=== PATIENT | female | born 1980 | race American Indian/Alaskan Native ===

== ENCOUNTER 2020-05-18 02:23 | Emergency (ER) | payer SELFPAY ==
[2020-05-18 11:09] VITALS: BP 148/82
== END 2020-05-19 02:22 ==
LOC: ED 02:23
DX: R44.0 Auditory hallucinations (principal); Z53.21 Procedure and treatment not carried out due to patient leaving prior to being seen by health care provider

== ENCOUNTER 2020-05-31 23:56 | Emergency (ER) | payer SELFPAY ==
--- NOTE | 2020-06-01 03:49 | Emergency Department Report ---
ED General Adult HPI - General Chief complaint: Extremity Injury, Lower Stated complaint: ANXIETY/HEADACHE/MUSCLE SPASM Time Seen by Provider: 06/01/20 03:44 Source: patient Mode of arrival: Ambulatory Limitations: No Limitations - History of Present Illness Initial comments: The patient was evaluated in the emergency department for symptoms described in the history of present illness. He/she was evaluated in the context of the global COVID-19 pandemic, which necessitated consideration that the patient might be at risk for infection with the virus that causes COVID-19. Institutional protocols and algorithms that pertain to the evaluation of edith ents at risk for COVID-19 are in a state of rapid change based on information released by regulatory bodies including the CDC and federal and state organizations. These policies and algorithms were followed during the patient's care in the emergency department. Please note that these policies, procedures and recommendations changed on a rapid basis. 39-year-old -[place] female presents to the emergency room complaining of bilateral leg cramping for the last 24 hours. Patient also complains of urinary frequency for the last 24 hours. She denies any dysuria but admits to nausea but no vomiting. Last menstrual period was 05/30/2020. Patient denies any recent falls. She states that the pain is worse when she sits down on the toilet where she catches a cramp in both inner thighs and lower calf. Patient has a past medical history of migraines and not taking anything for it at this time but was taking amitriptyline. She has a history of seizures and currently taking Dilantin, she has a history of bipolar and anxiety and has been taking hydroxyzine and trazodone. She has had a tubal ligation and cholecystectomy. Onset/Timin -: hour(s) Location: lower extremity Severity scale (0 -10): 10 Quality: other (Cramping) Consistency: constant Improves with: none Worsens with: other (sitting) Associated Symptoms: nausea/vomiting (Nausea no vomiting). denies: chest pain, fever/chills, headaches, loss of appetite, shortness of breath Treatments Prior to Arrival: none - Related Data Previous Rx's Medication Instructions Recorded Last Taken Type Acetaminophen/Codeine [Tylenol 1 tab PO Q6H PRN #12 tab 06/01/20 Unknown Rx /Codeine # 3 tab] Baclofen 5 mg PO TID PRN #15 tablet 06/01/20 Unknown Rx Allergies Allergy/AdvReac Type Severity Reaction Status Date / Time No Known Allergies Allergy Unverified 06/01/20 01:24 ED Review of Systems ROS: Stated complaint: ANXIETY/HEADACHE/MUSCLE SPASM Other details as noted in HPI Comment: All other systems reviewed and negative ED Past Medical Hx - Past Medical History Previous Medical History?: Yes Hx Headaches / Migraines: Yes Hx Seizures: Yes Hx Psychiatric Treatment: Yes (Bipolar, Anxiety,) - Surgical History Past Surgical History?: Yes Hx Cholecystectomy: Yes Additional Surgical History: Hernia. Tubal ligation. - Social History Smoking Status: Current Every Day Smoker Substance Use Type: None - Medications Home Medications: Home Medications Medication Instructions Recorded Confirmed Last Taken Type Acetaminophen/Codeine [Tylenol 1 tab PO Q6H PRN #12 tab 06/01/20 Unknown Rx /Codeine # 3 tab] Baclofen 5 mg PO TID PRN #15 tablet 06/01/20 Unknown Rx ED Physical Exam - General Limitations: No Limitations General appearance: alert, in no apparent distress - Head Head exam: Present: atraumatic, normocephalic - Eye Eye exam: Present: normal appearance - ENT ENT exam: Present: mucous membranes moist - Neck Neck exam: Present: normal inspection, full ROM - Expanded Lower Extremity Exam Left Upper Leg exam: Present: tenderness (Inner thigh). Absent: swelling Knee exam: Present: normal inspection, full ROM Lower Leg exam: Present: full ROM, tenderness Ankle exam: Present: normal inspection, full ROM Foot/Toe exam: Present: normal inspection, full ROM Neuro vascular tendon exam: Present: no vascular compromise Gait: Positive: observed and normal - Neurological Exam Neurological exam: Present: alert, oriented X3, normal gait - Psychiatric Psychiatric exam: Present: normal affect, normal mood - Skin Skin exam: Present: warm, dry, intact, normal color. Absent: rash ED Course Vital Signs 06/01/20 01:11 Temperature 98.4 F Pulse Rate 89 Respiratory 16 Rate Blood Pressure 116/77 O2 Sat by Pulse 99 Oximetry ED Medical Decision Making - Lab Data Result diagrams: 06/01/20 04:07 06/01/20 04:07 - Medical Decision Making 39-year-old -[place] female presents to the emergency room complaining of bilateral leg cramping for the last 24 hours. Patient also complains of urinary frequency for the last 24 hours. She denies any dysuria but admits to nausea but no vomiting. Last menstrual period was 05/30/2020. Patient denies any recent falls. She states that the pain is worse when she sits down on the toilet where she catches a cramp in both inner thighs and lower calf. Patient has a past medical history of migraines and not taking anything for it at this time but was taking amitriptyline. She has a history of seizures and currently taking Dilantin, she has a history of bipolar and anxiety and has been taking hydroxyzine and trazodone. She has had a tubal ligation and cholecystectomy. Urinalysis CBC CMP Critical care attestation.: If time is entered above; I have spent that time in minutes in the direct care of this critically ill patient, excluding procedure time. ED Disposition Clinical Impression: Muscle spasms of both lower extremities Disposition: DC-01 TO HOME OR SELFCARE Is pt being admited?: No Does the pt Need Aspirin: No Condition: Stable Instructions: Muscle Cramps and Spasms, [id number] Additional Instructions: Please increase your water by 3 L daily. Take your medication as prescribed. Follow-up with your primary care provider in the next 3 days.. Your urine was negative for any acute infection. Prescriptions: Baclofen 5 mg PO TID PRN #15 tablet PRN Reason: Muscle Spasm Acetaminophen/Codeine [Tylenol /Codeine # 3 tab] 1 tab PO Q6H PRN #12 tab PRN Reason: Pain , Severe (7-10) Referrals: ALICE WALLS MD [Primary Care Provider] - 3-5 Days Forms: Work/School Release Form(ED)
[2020-06-01 04:46] LABS: Hematocrit 38.2 % (30.3-42.9); Hemoglobin 12.9 gm/dl (10.1-14.3); Mean Corpuscular HGB Conc 34 % (30-34); Mean Corpuscular Volume 89 fl (79-97); Platelet Count 389 K/mm3 (140-440); Red Cell Distribution Width 14.6 % (13.2-15.2)
[2020-06-01 04:48] LABS: Basophils % (Auto) 0.5 % (0.0-1.8); Eosinophils # (Auto) 0.1 K/mm3 (0.0-0.4); Eosinophils % (Auto) 1.3 % (0.0-4.3); Lymphocytes # (Auto) 3.9 K/mm3 (1.2-5.4); Lymphocytes % (Auto) 59.5 % (13.4-35.0); Monocytes # (Auto) 0.5 K/mm3 (0.0-0.8); Monocytes % (Auto) 7.2 % (0.0-7.3)
[2020-06-01 04:57] LABS: Albumin 4.2 g/dL (3.9-5); Calcium 9.9 mg/dL (8.4-10.2)
[2020-06-01 05:56] LABS: Bilirubin,Urine NEG (Negative); Blood,Urine NEG (Negative); Color,Urine Yellow (Yellow); Mucus,Urine FEW /HPF; Protein,Urine <15 mg/dL mg/dL (Negative); Urobilinogen,Urine < 2.0 mg/dL (<2.0)
[2020-06-01 06:26] VITALS: BP 119/80
== END 2020-06-01 06:25 | disposition home or self-care (01) ==
LOC: ED 23:56
DX: M79.604 Pain in right leg (principal); M79.605 Pain in left leg; M62.838 Other muscle spasm; R35.0 Frequency of micturition; G43.909 Migraine, unspecified, not intractable, without status migrainosus; R56.9 Unspecified convulsions; F31.9 Bipolar disorder, unspecified; F41.9 Anxiety disorder, unspecified; F17.200 Nicotine dependence, unspecified, uncomplicated; Z90.49 Acquired absence of other specified parts of digestive tract; Z79.899 Other long term (current) drug therapy
CPT/HCPCS: 36415; 80053; 81001; 85025

== ENCOUNTER 2020-06-06 20:26 | Emergency (ER) | payer SELFPAY ==
[2020-06-06] MEDS ORDERED: SODIUM CHLORIDE 0.9% 1000 ML 1,000 ML IV ONE (22:36)
[2020-06-06] MEDS ORDERED: FAMOTIDINE 20 MG/2 ML INJ IV ONE (22:36)
[2020-06-06] MEDS ORDERED: ONDANSETRON 4 MG/2 ML INJ IV ONE (22:36)
[2020-06-06 23:18] LABS: Basophils % (Auto) 0.4 % (0.0-1.8); Eosinophils % (Auto) 0.7 % (0.0-4.3); Hemoglobin 11.8 gm/dl (10.1-14.3); Lymphocytes # (Auto) 3.2 K/mm3 (1.2-5.4); Lymphocytes % (Auto) 51.4 % (13.4-35.0); Mean Corpuscular HGB Conc 33 % (30-34); Mean Corpuscular Volume 89 fl (79-97); Monocytes # (Auto) 0.5 K/mm3 (0.0-0.8); Monocytes % (Auto) 8.1 % (0.0-7.3); Platelet Count 332 K/mm3 (140-440); Red Blood Count 4.05 M/mm3 (3.65-5.03); Red Cell Distribution Width 14.3 % (13.2-15.2)
[2020-06-06 23:55] LABS: Alanine Aminotransferase 33 units/L (7-56); Albumin 4.3 g/dL (3.9-5); BUN/Creatinine Ratio 13; Blood Urea Nitrogen 16 mg/dL (7-17); Calcium 9.7 mg/dL (8.4-10.2); Hemolysis Index 5
[2020-06-07 00:25] LABS: Bilirubin,Urine NEG (Negative); Blood,Urine NEG (Negative); Color,Urine Yellow (Yellow); Mucus,Urine 1+ /HPF; Protein,Urine <15 mg/dL mg/dL (Negative); Urobilinogen,Urine < 2.0 mg/dL (<2.0)
--- NOTE | 2020-06-07 00:25 | XRay Report ---
CHEST 1 VIEW 0014 INDICATION / CLINICAL INFORMATION: right-chest pain COMPARISON: None available. FINDINGS: SUPPORT DEVICES: None HEART / MEDIASTINUM: No significant abnormality. LUNGS / PLEURA: No significant pulmonary or pleural abnormality. No pneumothorax. ADDITIONAL FINDINGS: No significant additional findings. IMPRESSION: No significant acute abnormality Signer Name: Meng Gonzalez MD Signed: 06/07/2020 12:21 AM Workstation Name: [id number]
--- NOTE | 2020-06-07 04:13 | Emergency Department Report ---
ED General Adult HPI - General Chief complaint: Nausea/Vomiting/Diarrhea Stated complaint: CHEST PAIN PUI?: No Time Seen by Provider: 06/07/20 03:47 Source: patient Mode of arrival: Ambulatory Limitations: No Limitations - History of Present Illness Initial comments: Patient is a 39-year-old female that presents emergency room with complaints of right lower rib pain, nausea, vomiting, chills, fatigue,. Patient states that her rib pain, nausea, vomiting and fatigue and chills started June 05 at 7 AM. Patient states the symptoms are worsening. Patient states the pain is better with rest and worse with taking a deep breath and movement and palpation. Patient denies chest pain or shortness of breath. Patient states that she vomited once. Patient states she has not vomited since her initial vomiting episode. Patient states she still feels nauseated. Patient states she is able to tolerate p.o. intake. Patient states she is tired and fatigued and having chills. Patient also states that she is having hallucinations. Patient states she is hearing voices. Patient also complains of anxiety. Patient states that the voices are telling her to hurt herself. Patient states the voices are also talking about that she should and how they want to kill her. Patient complains of depression. Patient denies homicidal ideations. Patient states the voices are telling her to see her self. Patient states the symptoms are worsening. Patient denies recent travel. Patient denies recent international travel. Patient denies exposure to the novel coronavirus. Patient denies sick contacts. Patient denies fever.. Patient denies cough. Patient denies diarrhea. Patient denies coming in contact with anybody with symptoms of the novel coronavirus. -: Sudden Severity scale (0 -10): 8 Quality: stabbing Consistency: constant Improves with: rest Worsens with: movement, other (Palpation) Associated Symptoms: nausea/vomiting. denies: confusion, chest pain, cough, diaphoresis, headaches, loss of appetite, malaise, rash, seizure, shortness of breath, syncope, weakness - Related Data Previous Rx's Medication Instructions Recorded Last Taken Type Acetaminophen/Codeine [Tylenol 1 tab PO Q6H PRN #12 tab 06/01/20 Unknown Rx /Codeine # 3 tab] Baclofen 5 mg PO TID PRN #15 tablet 06/01/20 Unknown Rx Sulfamethoxazole/Trimethoprim 1 each PO BID 10 Days #20 tablet 06/07/20 Unknown Rx [Bactrim DS TAB] Allergies Allergy/AdvReac Type Severity Reaction Status Date / Time No Known Allergies Allergy Unverified 06/01/20 01:24 ED Review of Systems ROS: Stated complaint: CHEST PAIN Other details as noted in HPI Constitutional: chills, malaise. denies: fever Eyes: denies: eye pain, eye discharge, vision change ENT: denies: ear pain, throat pain Respiratory: denies: cough, shortness of breath, wheezing Cardiovascular: denies: chest pain, palpitations Endocrine: no symptoms reported Gastrointestinal: nausea, vomiting. denies: abdominal pain, diarrhea, constipation, hematemesis, melena, hematochezia Genitourinary: denies: urgency, dysuria, discharge Musculoskeletal: denies: back pain, joint swelling, arthralgia Skin: denies: rash, lesions Neurological: denies: headache, weakness, paresthesias Psychiatric: as per HPI, anxiety, depression, auditory hallucinations Hematological/Lymphatic: denies: easy bleeding, easy bruising ED Past Medical Hx - Past Medical History Previous Medical History?: Yes Hx Headaches / Migraines: Yes Hx Seizures: Yes Hx Psychiatric Treatment: Yes (Bipolar, Anxiety,) - Surgical History Past Surgical History?: Yes Hx Cholecystectomy: Yes Additional Surgical History: Hernia. Tubal ligation. - Family History Family history: no significant - Social History Smoking Status: Former Smoker Substance Use Type: None - Medications Home Medications: Home Medications Medication Instructions Recorded Confirmed Last Taken Type Acetaminophen/Codeine [Tylenol 1 tab PO Q6H PRN #12 tab 06/01/20 Unknown Rx /Codeine # 3 tab] Baclofen 5 mg PO TID PRN #15 tablet 06/01/20 Unknown Rx Sulfamethoxazole/Trimethoprim 1 each PO BID 10 Days #20 tablet 06/07/20 Unknown Rx [Bactrim DS TAB] ED Physical Exam - General Limitations: No Limitations General appearance: alert, in no apparent distress - Head Head exam: Present: atraumatic, normocephalic - Eye Eye exam: Present: normal appearance - ENT ENT exam: Present: mucous membranes moist - Neck Neck exam: Present: normal inspection - Respiratory Respiratory exam: Present: normal lung sounds bilaterally, chest wall tenderness. Absent: respiratory distress, wheezes, rales - Cardiovascular Cardiovascular Exam: Present: regular rate, normal rhythm. Absent: systolic murmur, diastolic murmur, rubs, gallop - GI/Abdominal GI/Abdominal exam: Present: soft, normal bowel sounds. Absent: distended, tenderness, guarding - Extremities Exam Extremities exam: Present: normal inspection - Back Exam Back exam: Present: normal inspection - Neurological Exam Neurological exam: Present: alert, oriented X3 - Psychiatric Psychiatric exam: Present: depressed, anxious, flat affect - Skin Skin exam: Present: warm, dry, intact, normal color. Absent: rash ED Course Vital Signs 06/06/20 20:37 Temperature 98.5 F Pulse Rate 87 Respiratory 18 Rate Blood Pressure 122/83 O2 Sat by Pulse 93 Oximetry - Reevaluation(s) Reevaluation #1: I discussed all results and clinical findings with patient. I discussed plan of care with patient. Patient agrees with plan of care. Patient is medically cleared. Patient will remain in the ER as an ER hold. Patient final disposition will come from our psychiatry and mental health team. 06/07/20 04:16 ED Medical Decision Making - Lab Data Result diagrams: 06/06/20 22:42 06/06/20 22:42 - Radiology Data Radiology results: report reviewed, image reviewed interpreted by me: Chest x-ray: No pneumonia, no pneumothorax, no foreign body, no osseous findings, no acute findings - Medical Decision Making Patient is a 39-year-old female that presents emergency room for multiple complaints. Patient complaints include hallucinations, anxiety, depression, fatigue, nausea, vomiting, rib pain. Patient only vomited one time. Patient has rib tenderness. Patient was complaining hallucinations and psychiatric complaints. Patient is medically cleared and will be taken to our psychiatric area. Patient's final disposition will come from our psychiatry team. Patient had labs done which were essentially unremarkable except for UTI. Patient's chest x-ray is negative. Patient is medically stable. Patient does not require emergency medical services. Patient's will be cleared by our psychiatry team. Patient given oral antibiotics prescription. - Differential Diagnosis Hallucinations, rib pain, strain, sprain, gastroenteritis,N/V, chills, Critical care attestation.: If time is entered above; I have spent that time in minutes in the direct care of this critically ill patient, excluding procedure time. ED Disposition Clinical Impression: Anxiety, Gastroenteritis, Hallucinations, Chest wall pain Nausea & vomiting Qualifiers: Vomiting type: unspecified Vomiting Intractability: non-intractable Qualified Code(s): R11.2 - Nausea with vomiting, unspecified Depression Qualifiers: Depression Type: unspecified Qualified Code(s): F32.9 - Major depressive disorder, single episode, unspecified UTI (urinary tract infection) Qualifiers: Urinary tract infection type: acute cystitis Hematuria presence: with hematuria Qualified Code(s): N30.01 - Acute cystitis with hematuria Disposition: DC/TX-65 PSY HOSP/PSY UNIT Is pt being admited?: No Does the pt Need Aspirin: No Condition: Stable Instructions: Nausea, Adult, Viral Gastroenteritis, Adult, [id number], Major Depressive Disorder, Adult, [id number], Urinary Tract Infection, Adult, [id number], Chest Pain (ED) Additional Instructions: Patient to follow-up with primary care in 2 to 3 days. Patient to rest. Patient to increase water. Patient to take Tylenol or ibuprofen as needed for pain. Patient to take meds as directed. Patient to return to the ER if condition worsens, changes or new symptoms arise. Prescriptions: Sulfamethoxazole/Trimethoprim [Bactrim DS TAB] 1 each PO BID 10 Days #20 tablet Referrals: ALICE WALLS MD [Primary Care Provider] - 2-3 Days Time of Disposition: 04:16
[2020-06-07] MEDS ORDERED: cefTRIAXone/NS 2 GM/100 ML 2 GM/100 ML BAG IV ONE (04:20)
[2020-06-07] MEDS ORDERED: LIDOCAINE-MPF (1%) 10 MG/1 ML VIAL 5 ML INFILTRATI ONE (04:43)
[2020-06-07 07:56] VITALS: BP 114/80
--- NOTE | 2020-06-07 08:49 | Consultation ---
History of Present Illness - Reason for Consult Consult date: 06/07/20 Reason for consult: hallucinations - History of Present Psychiatric Illness Per ED note, "complaints of right lower rib pain, nausea, vomiting, chills, fatigue,. Patient states that her rib pain, nausea, vomiting and fatigue and chills started June 05 at 7 AM. Patient states the symptoms are worsening. Patient states the pain is better with rest and worse with taking a deep breath and movement and palpation. Patient denies chest pain or shortness of breath. Patient states that she vomited once. Patient states she has not vomited since her initial vomiting episode. Patient states she still feels nauseated. Patient states she is able to tolerate p.o. intake. Patient states she is tired and fatigued and having chills. Patient also states that she is having hallucinations. Patient states she is hearing voices. Patient also complains of anxiety. Patient states that the voices are telling her to hurt herself. Patient states the voices are also talking about that she should and how they want to kill her. Patient complains of depression. Patient denies homicidal ideations. Patient states the voices are telling her to see her self. Patient states the symptoms are worsening." During my interview with Ashley Colón, she is lying in bed resting, but awake. She is calm and cooperative. The patient says she came in because she was having "bad anxiety." She says "any my chest was hurting." When asking the patient about the hallucinations, she says "I have them why I'm off my meds." She says she has been of her meds for about "a week and 1/2." But the patient denies having them at present. The patient says she has a history of anxiety, bipolar, PTSD and heroine use. The patient says she's been doing heroine for about "8 years, but had been clean until the end of last year." She says "I have withdrawals symptoms if I'm off and they are really bad." When asked about rehab the patient, She says, "I was just released from [facility] so I don't know why I'm up here." She says she was discharged from [facility] on May 28. The edith ent says she could not afford her medication. The patient denies SI/HI or ever being. She says "I don't feel suicidal at all." PAST PSYCHIATRIC HISTORY Diagnoses: PTSD, Anxiety, bipolar Suicide attempts or Self-harm behavior: yes Prior psychiatric hospitalizations: Yes Substance Abuse history: Heroine Previous psychiatric medications tried: Trazodone, hydroxizine Outpatient treatment: No PAST MEDICAL HISTORY: None reported Family Psychiatric History: None reported or documented SOCIAL HISTORY Marital Status: Single Living Arrangements: with friends Employment Status: unemployed Access to guns/weapons: Denies Education: 11 History of Abuse: Denies Legal History: Denies EVIEW OF SYSTEMS Constitutional: Negative for weight loss ENT: Negative for stridor Respiratory: Negative for cough or hemoptysis All other systems reviewed and are negative MENTAL STATUS EXAMINATION General Appearance and Behavior: Age appropriate, wearing appropriate clothes, calm and cooperative, polite Mood: "better" Affect and affective range: congruent with mood Thought Process: logical Thought Content: none Speech: Normal volume, Regular rate and rhythm Suicidal Ideation: Denies Homicidal Ideation: Denies Hallucinations: Denies at present Delusions: None elicited Impulse Control: Normal Insight and Judgment: Limited Memory/Cognition: Normal Attention: Normal Orientation: Alert, oriented Assessment (1) Opioid Dependence (F11.20) (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 The patient understands that if suicidal thoughts are to arise she is to seek immediate attention including but not limited to 911/ER, or the crisis hotline. The street light servicer helper is to give the patient outpatient resources for med management and assistance, CBT, and drug rehab. The street light servicer helper is to further discuss the safety plan with the patient. The patient is to abstain from all illicit drug use and comply with medical regimen She is to follow up in 7 to 14 days upon discharge Will sign off. Thank you for this consult. Case staffed with Dr. Luz Medications and Allergies Allergies Allergy/AdvReac Type Severity Reaction Status Date / Time No Known Allergies Allergy Unverified 06/01/20 01:24 Home Medications Medication Instructions Recorded Confirmed Last Taken Type Acetaminophen/Codeine [Tylenol 1 tab PO Q6H PRN #12 tab 06/01/20 Unknown Rx /Codeine # 3 tab] Baclofen 5 mg PO TID PRN #15 tablet 06/01/20 Unknown Rx Hydroxyzine HCl [hydrOXYzine] 50 mg PO DAILY PRN #30 tablet 06/07/20 Unknown Rx Sulfamethoxazole/Trimethoprim 1 each PO BID 10 Days #20 tablet 06/07/20 Unknown Rx [Bactrim DS TAB] risperiDONE [RisperDAL] 0.5 mg PO BID #60 tablet 06/07/20 Unknown Rx traZODone [Desyrel] 50 mg PO QHS #30 tab 06/07/20 Unknown Rx Mental Status Exam - Vital signs Last Vital Signs Temp 97.6 F 06/07/20 07:54 Pulse 68 06/07/20 07:54 Resp 20 06/07/20 07:54 BP 114/80 06/07/20 07:54 Pulse Ox 98 06/07/20 07:54 Results Result Diagrams: 06/06/20 22:42 06/06/20 22:42 Abnormal lab results 06/06/20 06/06/20 Range/Units 22:42 Unknown Lymph % (Auto) 51.4 H (13.4-35.0) % [place] % (Auto) 8.1 H (0.0-7.3) % Seg Neutrophils % 39.4 L (40.0-70.0) % Urine WBC (Auto) 36.0 H (0.0-6.0) /HPF All other labs normal.
[2020-06-07] MEDS ORDERED: hydrOXYzine PAMOATE 25 MG CAP PO NR ×2 (09:04→11:00)
[2020-06-07] MEDS ORDERED: risperiDONE 0.25 MG TAB PO NR ×2 (09:05→11:00)
== END 2020-06-07 13:27 ==
LOC: ED 20:26
DX: K52.9 Noninfective gastroenteritis and colitis, unspecified (principal); F41.9 Anxiety disorder, unspecified; R07.89 Other chest pain; F32.9 Major depressive disorder, single episode, unspecified; N39.0 Urinary tract infection, site not specified; G43.909 Migraine, unspecified, not intractable, without status migrainosus; G40.909 Epilepsy, unspecified, not intractable, without status epilepticus; Z90.49 Acquired absence of other specified parts of digestive tract; Z98.51 Tubal ligation status; Z87.891 Personal history of nicotine dependence; Z79.899 Other long term (current) drug therapy
CPT/HCPCS: 36415; 71045; 80053; 81001; 83690; 84484; 84703; 85025; 87086; 96372; 99284; J0696; Q0177

== ENCOUNTER 2020-06-16 01:01 | Emergency (ER) | payer SELFPAY ==
--- NOTE | 2020-06-16 01:19 | Emergency Department Report ---
Blank Doc - Documentation Documentation: 39-year-old -Thai female with a myriad of past medical history she just emerged part complaining of nausea vomiting diarrhea headache anxiety and auditory hallucinations of an unknown etiology also reports having a seizure a few days ago. States she has been unable to keep her UTI medication down and her anxiety medicine down due to the nausea and vomiting as well which is further exacerbating her her current symptoms. This initial assessment/diagnostic orders/clinical plan/treatment(s) is/are subject to change based on patients health status, clinical progression and re- assessment by fellow clinical providers in the ED. Further treatment and workup at subsequent clinical providers discretion. Patient/guardian urged not to elope from the ED as their condition may be serious if not clinically assessed and managed. Initial orders include: Labs, x-ray, urinalysis
[2020-06-16] MEDS ORDERED: ONDANSETRON 4 MG ODT TAB PO ONE (01:40)
[2020-06-16 01:43] LABS: Basophils % (Auto) 0.3 % (0.0-1.8); Eosinophils # (Auto) 0.1 K/mm3 (0.0-0.4); Eosinophils % (Auto) 1.1 % (0.0-4.3); Hemoglobin 12.5 gm/dl (10.1-14.3); Lymphocytes # (Auto) 2.3 K/mm3 (1.2-5.4); Lymphocytes % (Auto) 46.4 % (13.4-35.0); Mean Corpuscular HGB Conc 34 % (30-34); Mean Corpuscular Volume 89 fl (79-97); Monocytes # (Auto) 0.4 K/mm3 (0.0-0.8); Monocytes % (Auto) 7.8 % (0.0-7.3); Platelet Count 319 K/mm3 (140-440); Red Blood Count 4.18 M/mm3 (3.65-5.03); Red Cell Distribution Width 14.5 % (13.2-15.2)
[2020-06-16 02:04] LABS: Alanine Aminotransferase 27 units/L (7-56); Albumin 4.2 g/dL (3.9-5); BUN/Creatinine Ratio 19; Blood Urea Nitrogen 21 mg/dL (7-17); Calcium 9.3 mg/dL (8.4-10.2); Hemolysis Index 4
--- NOTE | 2020-06-16 02:21 | Emergency Department Report ---
ED N/V/D HPI - General Chief complaint: Nausea/Vomiting/Diarrhea Stated complaint: EMESIS/ABD PAIN/SEVERE SWEATING/ANXIETY Time Seen by Provider: 06/16/20 01:19 Source: patient Mode of arrival: Ambulatory Limitations: No Limitations - History of Present Illness Initial comments: 39-year-old female, history of PTSD, anxiety, bipolar disorder, presents to ED with complaint of nausea and vomiting for approximately 4 days. Patient states she has been unable to take her psych meds due to her vomiting. Patient reports some auditory hallucinations in which people sound as if they are talking about her. She denies any command auditory hallucinations. She denies SI, HI. Patient reports she has been feeling anxious. Patient denies any alcohol or drug use. States she smokes cigarettes. MD complaint: nausea, vomiting -: days(s) (4) Description of Vomiting: food contents Associated Abdominal Pain: Yes (Lower abdominal pain) Radiation: other (Back) Severity: mild Quality: cramping Consistency: intermittent Improves with: none Worsens with: eating Associated Symptoms: denies: fever/chills - Related Data Previous Rx's Medication Instructions Recorded Last Taken Type Acetaminophen/Codeine [Tylenol 1 tab PO Q6H PRN #12 tab 06/01/20 Unknown Rx /Codeine # 3 tab] Baclofen 5 mg PO TID PRN #15 tablet 06/01/20 Unknown Rx Hydroxyzine HCl [hydrOXYzine] 50 mg PO DAILY PRN #30 tablet 06/07/20 Unknown Rx Sulfamethoxazole/Trimethoprim 1 each PO BID 10 Days #20 tablet 06/07/20 Unknown Rx [Bactrim DS TAB] risperiDONE [RisperDAL] 0.5 mg PO BID #60 tablet 06/07/20 Unknown Rx traZODone [Desyrel] 50 mg PO QHS #30 tab 06/07/20 Unknown Rx Ondansetron [Zofran Odt] 4 mg PO Q8HR PRN #20 tab.rapdis 06/16/20 Unknown Rx Allergies Allergy/AdvReac Type Severity Reaction Status Date / Time metoclopramide [From Reglan] Allergy Unknown Verified 06/16/20 01:13 ED Review of Systems ROS: Stated complaint: EMESIS/ABD PAIN/SEVERE SWEATING/ANXIETY Other details as noted in HPI Comment: All other systems reviewed and negative Constitutional: denies: fever Gastrointestinal: abdominal pain, nausea, vomiting. denies: diarrhea Genitourinary: frequency Psychiatric: anxiety, auditory hallucinations. denies: visual hallucinations, homicidal thoughts, suicidal thoughts ED Past Medical Hx - Past Medical History Previous Medical History?: Yes Hx Headaches / Migraines: Yes Hx Seizures: Yes Hx Psychiatric Treatment: Yes (Bipolar, Anxiety,) - Surgical History Past Surgical History?: Yes Hx Cholecystectomy: Yes Additional Surgical History: Hernia. Tubal ligation. - Social History Smoking Status: Current Every Day Smoker Substance Use Type: None - Medications Home Medications: Home Medications Medication Instructions Recorded Confirmed Last Taken Type Acetaminophen/Codeine [Tylenol 1 tab PO Q6H PRN #12 tab 06/01/20 Unknown Rx /Codeine # 3 tab] Baclofen 5 mg PO TID PRN #15 tablet 06/01/20 Unknown Rx Hydroxyzine HCl [hydrOXYzine] 50 mg PO DAILY PRN #30 tablet 06/07/20 Unknown Rx Sulfamethoxazole/Trimethoprim 1 each PO BID 10 Days #20 tablet 06/07/20 Unknown Rx [Bactrim DS TAB] risperiDONE [RisperDAL] 0.5 mg PO BID #60 tablet 06/07/20 Unknown Rx traZODone [Desyrel] 50 mg PO QHS #30 tab 06/07/20 Unknown Rx Ondansetron [Zofran Odt] 4 mg PO Q8HR PRN #20 tab.rapdis 06/16/20 Unknown Rx ED Physical Exam - General Limitations: No Limitations General appearance: alert, in no apparent distress - Head Head exam: Present: atraumatic, normocephalic - Eye Eye exam: Present: normal appearance, EOMI - ENT ENT exam: Present: mucous membranes moist - Neck Neck exam: Present: normal inspection - Respiratory Respiratory exam: Present: normal lung sounds bilaterally. Absent: respiratory distress - Cardiovascular Cardiovascular Exam: Present: regular rate, normal rhythm - GI/Abdominal GI/Abdominal exam: Present: soft. Absent: distended, tenderness - Extremities Exam Extremities exam: Present: normal inspection - Neurological Exam Neurological exam: Present: alert, oriented X3 - Psychiatric Psychiatric exam: Present: normal affect, normal mood - Skin Skin exam: Present: warm, dry, intact, normal color ED Course Vital Signs 06/16/20 06/16/20 01:06 03:01 Temperature 97.8 F 97.9 F Pulse Rate 95 H 89 Respiratory 16 18 Rate Blood Pressure 139/88 Blood Pressure 108/62 [Left] O2 Sat by Pulse 96 99 Oximetry ED Medical Decision Making - Lab Data Result diagrams: 06/16/20 01:20 06/16/20 01:20 - Medical Decision Making 39-year-old female presents to the ED with report of abdominal pain, nausea and vomiting. Patient currently eating and drinking here in the ED without difficulty. Labs are unremarkable except for UDS which is positive for cocaine. Patient given Zofran and Ativan here in the ED and states that she is feeling much better at this time. She denies any SI or HI. Patient will be discharged home, outpatient psych follow-up advised. Critical care attestation.: If time is entered above; I have spent that time in minutes in the direct care of this critically ill patient, excluding procedure time. ED Disposition Clinical Impression: Nausea & vomiting, Anxiety, Cocaine abuse Disposition: - TO HOME OR SELFCARE Is pt being admited?: No Condition: Stable Instructions: Nausea and Vomiting, Adult, [id number], Managing Anxiety, Adult Prescriptions: Ondansetron [Zofran Odt] 4 mg PO Q8HR PRN #20 tab.rapdis PRN Reason: Vomiting Referrals: ALICE WALLS MD [Primary Care Provider] - 3-[address] [facility] [Outside] - 3-5 Days Time of Disposition: 02:42
[2020-06-16 02:25] LABS: Amphetamine Screen,Urine Negative; Benzodiazepines Screen,Urine Negative; Cannabinoid Screen,Urine Negative; Methadone Screen,Urine Negative
[2020-06-16 02:27] LABS: Bilirubin,Urine NEG (Negative); Blood,Urine NEG (Negative); Color,Urine Yellow (Yellow); Mucus,Urine FEW /HPF; Protein,Urine <15 mg/dL mg/dL (Negative); Urobilinogen,Urine < 2.0 mg/dL (<2.0)
[2020-06-16 02:38] LABS: Cocaine Screen,Urine Positive; Opiate Screen,Urine Positive
[2020-06-16] MEDS ORDERED: LORazepam 1 MG TAB PO ONE (02:41)
[2020-06-16] MEDS ORDERED: IBUPROFEN 600 MG TAB PO ONE (02:49)
[2020-06-16 03:06] VITALS: BP 108/62
== END 2020-06-16 03:11 | disposition home or self-care (01) ==
LOC: ED 01:01
DX: F41.9 Anxiety disorder, unspecified (principal); R11.2 Nausea with vomiting, unspecified; F14.10 Cocaine abuse, uncomplicated; F31.9 Bipolar disorder, unspecified; F17.200 Nicotine dependence, unspecified, uncomplicated; G43.909 Migraine, unspecified, not intractable, without status migrainosus; Z88.8 Allergy status to other drugs, medicaments and biological substances; Z79.899 Other long term (current) drug therapy; Z86.69 Personal history of other diseases of the nervous system and sense organs; Z98.51 Tubal ligation status
CPT/HCPCS: 36415; 80053; 80307; 80320; 81001; 83690; 84703; 85025; 87086; G0480; Q0162

== ENCOUNTER 2020-06-16 05:49 | Emergency (ER) | payer MEDICAID ==
--- NOTE | 2020-06-16 05:58 | Emergency Department Report ---
Blank Doc - Documentation Documentation: 39-year-old female with seizure history and anxiety returns to the emergency d epartment complaining of worsening anxiety and auditory hallucinations also reports he does not feel safe at home. She reports having had a seizure just prior to coming here via EMS and her previous visit of a couple hours ago she was found to have cocaine/opiates in her system does report taking Dilantin for her seizures. Currently she is anxious and perspiring around the forehead This initial assessment/diagnostic orders/clinical plan/treatment(s) is/are subject to change based on patients health status, clinical progression and re- assessment by fellow clinical providers in the ED. Further treatment and workup at subsequent clinical providers discretion. Patient/guardian urged not to elope from the ED as their condition may be serious if not clinically assessed and managed. Initial orders include: Evaluate Dilantin level and give some Ativan to calm her down
[2020-06-16] MEDS ORDERED: LORazepam 1 MG TAB PO ONE (05:59)
[2020-06-16] MEDS ORDERED: SODIUM CHLORIDE 0.9% 1000 ML 1,000 ML ONE (06:59)
--- NOTE | 2020-06-16 10:59 | Emergency Department Report ---
ED General Adult HPI - General Chief complaint: Seizure Stated complaint: SEIZURE Time Seen by Provider: 06/16/20 09:38 Source: patient, EMS Mode of arrival: Ambulatory Limitations: No Limitations - History of Present Illness Initial comments: The patient presents to the emergency department for seizure-like activity. Patient was seen in the emergency department and discharged earlier this morning and upon leaving the emergency department she had a seizure. Patient states she is supposed to take Dilantin for seizures but does not have the medication. Patient denies any homicidal suicidal ideations. Patient does have auditory loose Nations but she states that is normal. Patient denies chest pain, chest pain, headache -: Sudden Severity scale (0 -10): 0 Consistency: constant Improves with: none Worsens with: none Associated Symptoms: denies other symptoms Treatments Prior to Arrival: none - Related Data Previous Rx's Medication Instructions Recorded Last Taken Type Acetaminophen/Codeine [Tylenol 1 tab PO Q6H PRN #12 tab 06/01/20 Unknown Rx /Codeine # 3 tab] Baclofen 5 mg PO TID PRN #15 tablet 06/01/20 Unknown Rx Hydroxyzine HCl [hydrOXYzine] 50 mg PO DAILY PRN #30 tablet 06/07/20 Unknown Rx Sulfamethoxazole/Trimethoprim 1 each PO BID 10 Days #20 tablet 06/07/20 Unknown Rx [Bactrim DS TAB] risperiDONE [RisperDAL] 0.5 mg PO BID #60 tablet 06/07/20 Unknown Rx traZODone [Desyrel] 50 mg PO QHS #30 tab 06/07/20 Unknown Rx Ondansetron [Zofran Odt] 4 mg PO Q8HR PRN #20 tab.rapdis 06/16/20 Unknown Rx Phenytoin [Dilantin] 100 mg PO BID #30 capsule 06/16/20 Unknown Rx Allergies Allergy/AdvReac Type Severity Reaction Status Date / Time metoclopramide [From Reglan] Allergy Unknown Verified 06/16/20 01:13 ED Review of Systems ROS: Stated complaint: SEIZURE Other details as noted in HPI Constitutional: denies: chills, fever Eyes: denies: eye pain, eye discharge, vision change ENT: denies: ear pain, throat pain Respiratory: denies: cough, shortness of breath, wheezing Cardiovascular: denies: chest pain, palpitations Endocrine: no symptoms reported Gastrointestinal: denies: abdominal pain, nausea, diarrhea Genitourinary: denies: urgency, dysuria, discharge Musculoskeletal: denies: back pain, joint swelling, arthralgia Skin: denies: rash, lesions Neurological: denies: headache, weakness, paresthesias Psychiatric: auditory hallucinations. denies: anxiety, depression, visual hallucinations, homicidal thoughts, suicidal thoughts Hematological/Lymphatic: denies: easy bleeding, easy bruising ED Past Medical Hx - Past Medical History Previous Medical History?: Yes Hx Headaches / Migraines: Yes Hx Seizures: Yes Hx Psychiatric Treatment: Yes (Bipolar, Anxiety,) - Surgical History Past Surgical History?: Yes Hx Cholecystectomy: Yes Additional Surgical History: Hernia. Tubal ligation. - Social History Smoking Status: Current Every Day Smoker Substance Use Type: None - Medications Home Medications: Home Medications Medication Instructions Recorded Confirmed Last Taken Type Acetaminophen/Codeine [Tylenol 1 tab PO Q6H PRN #12 tab 06/01/20 Unknown Rx /Codeine # 3 tab] Baclofen 5 mg PO TID PRN #15 tablet 06/01/20 Unknown Rx Hydroxyzine HCl [hydrOXYzine] 50 mg PO DAILY PRN #30 tablet 06/07/20 Unknown Rx Sulfamethoxazole/Trimethoprim 1 each PO BID 10 Days #20 tablet 06/07/20 Unknown Rx [Bactrim DS TAB] risperiDONE [RisperDAL] 0.5 mg PO BID #60 tablet 06/07/20 Unknown Rx traZODone [Desyrel] 50 mg PO QHS #30 tab 06/07/20 Unknown Rx Ondansetron [Zofran Odt] 4 mg PO Q8HR PRN #20 tab.rapdis 06/16/20 Unknown Rx Phenytoin [Dilantin] 100 mg PO BID #30 capsule 06/16/20 Unknown Rx ED Physical Exam - General Limitations: No Limitations General appearance: alert, in no apparent distress - Head Head exam: Present: atraumatic, normocephalic - Eye Eye exam: Present: normal appearance, PERRL, EOMI - ENT ENT exam: Present: mucous membranes moist - Neck Neck exam: Present: normal inspection - Respiratory Respiratory exam: Present: normal lung sounds bilaterally. Absent: respiratory distress - Cardiovascular Cardiovascular Exam: Present: regular rate, normal rhythm. Absent: systolic murmur, diastolic murmur, rubs, gallop - GI/Abdominal GI/Abdominal exam: Present: soft, normal bowel sounds. Absent: distended, tenderness - Extremities Exam Extremities exam: Present: normal inspection - Back Exam Back exam: Present: normal inspection - Neurological Exam Neurological exam: Present: alert, oriented X3, CN II-XII intact. Absent: motor sensory deficit - Psychiatric Psychiatric exam: Present: normal affect, normal mood - Skin Skin exam: Present: warm, dry, intact, normal color. Absent: rash ED Course Vital Signs 06/16/20 06/16/20 05:52 11:29 Temperature 98.4 F Pulse Rate 93 H 60 Respiratory 17 Rate Blood Pressure 139/84 123/73 O2 Sat by Pulse 98 96 Oximetry ED Medical Decision Making - Lab Data Lab Results 06/16/20 Range/Units 01:20 Phenytoin 0.8 L (10.0-20.0) ug/mL - Medical Decision Making Discussed plan of care with patient Critical care attestation.: If time is entered above; I have spent that time in minutes in the direct care of this critically ill patient, excluding procedure time. ED Disposition Clinical Impression: Seizure Disposition: DC-01 TO HOME OR SELFCARE Is pt being admited?: No Does the pt Need Aspirin: No Condition: Stable Instructions: Seizure, Adult, [id number] Additional Instructions: return if worse Prescriptions: Phenytoin [Dilantin] 100 mg PO BID #30 capsule Referrals: ALICE WALLS MD [Primary Care Provider] - 3-5 Days SOLITARIO ANDERSON MD [Staff Physician] - 3-5 Days Time of Disposition: 12:49
[2020-06-16 11:35] VITALS: BP 123/73
[2020-06-16] MEDS ORDERED: PHENYTOIN 100 MG CAPSULE.ER PO ONE (12:15)
== END 2020-06-16 13:39 | disposition home or self-care (01) ==
LOC: ED 05:49
DX: G40.909 Epilepsy, unspecified, not intractable, without status epilepticus (principal); F17.200 Nicotine dependence, unspecified, uncomplicated; F41.9 Anxiety disorder, unspecified; G43.909 Migraine, unspecified, not intractable, without status migrainosus; Z79.899 Other long term (current) drug therapy; Z88.8 Allergy status to other drugs, medicaments and biological substances; Z98.51 Tubal ligation status; Z98.890 Other specified postprocedural states; Z90.49 Acquired absence of other specified parts of digestive tract
CPT/HCPCS: 36415; 80185; 99284; J7030

== ENCOUNTER 2020-06-16 21:34 | Emergency (ER) | payer SELFPAY ==
[2020-06-17] MEDS ORDERED: ONDANSETRON 4 MG/2 ML INJ IV ONE (07:49)
[2020-06-17] MEDS ORDERED: SODIUM CHLORIDE 0.9% 1000 ML 1,000 ML IV ONE (07:49)
[2020-06-17] MEDS ORDERED: PHENYTOIN 100 MG/2 ML VIAL IV ONE (07:50)
--- NOTE | 2020-06-17 08:00 | Emergency Department Report ---
ED General Adult HPI - General Chief complaint: Seizure Stated complaint: SEIZURE Time Seen by Provider: 06/17/20 07:40 Source: patient, EMS Mode of arrival: Ambulatory Limitations: No Limitations - History of Present Illness Initial comments: Patient is a 39-year-old female with history of seizures noncompliant on Dilantin who presents emergency department for evaluation of suspected seizure at home today. Patient notes she has had nausea, vomiting, and difficulty with bowel movements x3 days. Complains of mild intermittent crampy left lower quad rant pain. Patient denies fever, denies shortness of breath, denies chest pain, denies head injury - Related Data Previous Rx's Medication Instructions Recorded Last Taken Type Acetaminophen/Codeine [Tylenol 1 tab PO Q6H PRN #12 tab 06/01/20 Unknown Rx /Codeine # 3 tab] Baclofen 5 mg PO TID PRN #15 tablet 06/01/20 Unknown Rx Hydroxyzine HCl [hydrOXYzine] 50 mg PO DAILY PRN #30 tablet 06/07/20 Unknown Rx Sulfamethoxazole/Trimethoprim 1 each PO BID 10 Days #20 tablet 06/07/20 Unknown Rx [Bactrim DS TAB] risperiDONE [RisperDAL] 0.5 mg PO BID #60 tablet 06/07/20 Unknown Rx traZODone [Desyrel] 50 mg PO QHS #30 tab 06/07/20 Unknown Rx Ondansetron [Zofran Odt] 4 mg PO Q8HR PRN #20 tab.rapdis 06/16/20 Unknown Rx Phenytoin [Dilantin] 100 mg PO BID #30 capsule 06/16/20 Unknown Rx Allergies Allergy/AdvReac Type Severity Reaction Status Date / Time metoclopramide [From Reglan] Allergy Unknown Verified 06/16/20 01:13 ED Review of Systems ROS: Stated complaint: SEIZURE Other details as noted in HPI Comment: All other systems reviewed and negative ED Past Medical Hx - Past Medical History Previous Medical History?: Yes Hx Headaches / Migraines: Yes Hx Seizures: Yes Hx Psychiatric Treatment: Yes (Bipolar, Anxiety,) - Surgical History Past Surgical History?: Yes Hx Cholecystectomy: Yes Additional Surgical History: Hernia. Tubal ligation. - Social History Smoking Status: Current Every Day Smoker Substance Use Type: None - Medications Home Medications: Home Medications Medication Instructions Recorded Confirmed Last Taken Type Acetaminophen/Codeine [Tylenol 1 tab PO Q6H PRN #12 tab 06/01/20 Unknown Rx /Codeine # 3 tab] Baclofen 5 mg PO TID PRN #15 tablet 06/01/20 Unknown Rx Hydroxyzine HCl [hydrOXYzine] 50 mg PO DAILY PRN #30 tablet 06/07/20 Unknown Rx Sulfamethoxazole/Trimethoprim 1 each PO BID 10 Days #20 tablet 06/07/20 Unknown Rx [Bactrim DS TAB] risperiDONE [RisperDAL] 0.5 mg PO BID #60 tablet 06/07/20 Unknown Rx traZODone [Desyrel] 50 mg PO QHS #30 tab 06/07/20 Unknown Rx Ondansetron [Zofran Odt] 4 mg PO Q8HR PRN #20 tab.rapdis 06/16/20 Unknown Rx Phenytoin [Dilantin] 100 mg PO BID #30 capsule 06/16/20 Unknown Rx ED Physical Exam - General Limitations: No Limitations General appearance: alert, in no apparent distress - Head Head exam: Present: atraumatic, normocephalic - Eye Eye exam: Present: normal appearance - ENT ENT exam: Present: mucous membranes moist - Neck Neck exam: Present: normal inspection - Respiratory Respiratory exam: Present: normal lung sounds bilaterally. Absent: respiratory distress - Cardiovascular Cardiovascular Exam: Present: regular rate, normal rhythm - GI/Abdominal GI/Abdominal exam: Present: tenderness (Mild epigastric tenderness), normal bowel sounds - Extremities Exam Extremities exam: Present: normal inspection - Back Exam Back exam: Present: normal inspection - Neurological Exam Neurological exam: Present: alert, oriented X3 - Psychiatric Psychiatric exam: Present: normal affect, normal mood - Skin Skin exam: Present: warm, dry, intact, normal color. Absent: rash ED Course Vital Signs 06/16/20 23:13 Temperature 98.0 F Pulse Rate 111 H Respiratory 17 Rate Blood Pressure 127/87 O2 Sat by Pulse 96 Oximetry - Reevaluation(s) Reevaluation #1: 06/17/20 08:00 Initially treated with IV Dilantin, IV normal saline, IV Zofran Reevaluation #2: 06/17/20 10:26 Patient reevaluated and in no acute distress, lab work normal, CT normal, patient discharged ED Medical Decision Making - Lab Data Result diagrams: 06/17/20 08:21 06/17/20 08:21 Lab Results 06/17/20 06/17/20 06/17/20 Range/Units 08:21 08:21 08:21 WBC 4.8 (4.5-11.0) K/mm3 RBC 3.99 (3.65-5.03) M/mm3 Hgb 11.6 (10.1-14.3) gm/dl Hct 35.6 (30.3-42.9) % MCV 89 (79-97) fl MCH 29 (28-32) pg MCHC 33 (30-34) % RDW 14.7 (13.2-15.2) % Plt Count 307 (140-440) K/mm3 Lymph % (Auto) 52.1 H (13.4-35.0) % [place] % (Auto) 10.5 H (0.0-7.3) % Eos % (Auto) 1.5 (0.0-4.3) % Baso % (Auto) 0.2 (0.0-1.8) % Lymph # (Auto) 2.5 (1.2-5.4) K/mm3 [place] # (Auto) 0.5 (0.0-0.8) K/mm3 Eos # (Auto) 0.1 (0.0-0.4) K/mm3 Baso # (Auto) 0.0 (0.0-0.1) K/mm3 Seg Neutrophils % 35.7 L (40.0-70.0) % Seg Neutrophils # 1.7 L (1.8-7.7) K/mm3 Sodium 136 L (137-145) mmol/L Potassium 4.1 (3.6-5.0) mmol/L Chloride 102.3 (98-107) mmol/L Carbon Dioxide 28 (22-30) mmol/L Anion Gap 10 mmol/L BUN 16 (7-17) mg/dL Creatinine 1.0 (0.6-1.2) mg/dL Estimated GFR > 60 ml/min BUN/Creatinine Ratio 16 % Glucose 121 H (65-100) mg/dL Calcium 8.9 (8.4-10.2) mg/dL Total Bilirubin < 0.20 (0.1-1.2) mg/dL Direct Bilirubin < 0.2 (0-0.2) mg/dL Indirect Bilirubin 0.0 mg/dL AST 17 (5-40) units/L ALT 21 (7-56) units/L Alkaline Phosphatase 63 (35-129) units/L Total Protein 7.7 (6.3-8.2) g/dL Albumin 3.9 (3.9-5) g/dL Albumin/Globulin Ratio 1.0 % Lipase 19 (13-60) units/L HCG, Quant < 2 (0-4) mIU/mL Vital Signs 06/16/20 23:13 Temperature 98.0 F Pulse Rate 111 H Respiratory 17 Rate Blood Pressure 127/87 O2 Sat by Pulse 96 Oximetry - Radiology Data Radiology results: report reviewed <HTML><META HTTP-EQUIV="content-type" CONTENT="text/html;charset=utf-8"> [facility]
[address]
[place] [address]

Cat Scan Report
Signed

Patient: MARGIE MAYORGA MR#: [id number]

: 1980 Acct:[id number]

Age/Sex: 39 / F ADM Date: 06/16/20

Loc: ED
Attending Dr:

Ordering Physician: NILAY ANGUIANO MD
Date of Service: 06/17/20
Procedure(s): CT abdomen pelvis w con
Accession Number(s): [id number]

cc: NILAY ANGUIANO MD

CT abdomen pelvis w con

INDICATION:
abdominal pain.

COMPARISON: None

TECHNIQUE: Abdominal and pelvic CT exam performed. All CT scans at this location are performed
using CT dose reduction for ALARA by means of automated exposure control.

FINDINGS:

CT ABDOMEN and PELVIS:
Lung Bases: No significant abnormality.
Liver: No significant abnormality.
Biliary: Gallbladder is surgically absent. Mild extra and intrahepatic biliary ductal dilation
which is likely chronic and is commonly seen in the setting of cholecystectomy
Spleen: No significant abnormality.
Pancreas: No significant abnormality.
Adrenals: No significant abnormality.
Kidneys: No significant abnormality.
Lymphatics: No lymphadenopathy.
Vasculature: No significant abnormality.
Bowel: No significant abnormality. Normal appendix.
Pelvis: No significant abnormality.
Osseous Structures: No aggressive osseous lesion.
Additional Findings: None

IMPRESSION:
1. No acute abnormality of the abdomen or pelvis.
2. Mild biliary ductal dilation which is commonly seen in the setting of cholecystectomy and likely
chronic. Can correlate for cholestatic labs.

Signer Name: Blake Mullins MD
Signed: 06/17/2020 10:06 AM
Workstation Name: [id number]

Transcribed By: CRICKET
Dictated By: Blake Mullins MD
Electronically Authenticated By: Blake Mullins MD
Signed Date/Time: 06/17/20 1006

DD/ 1001
TD/TT: Critical care attestation.: If time is entered above; I have spent that time in minutes in the direct care of this critically ill patient, excluding procedure time. ED Disposition Clinical Impression: Abdominal pain, Seizure, Noncompliance with medication regimen Disposition: - TO HOME OR SELFCARE Is pt being admited?: No Condition: Stable Instructions: Abdominal Pain, Adult, Epilepsy Referrals: PRIMARY CARE, [Primary Care Provider] - 3-5 Days
[2020-06-17 08:59] LABS: Basophils % (Auto) 0.2 % (0.0-1.8); Eosinophils # (Auto) 0.1 K/mm3 (0.0-0.4); Eosinophils % (Auto) 1.5 % (0.0-4.3); Hematocrit 35.6 % (30.3-42.9); Hemoglobin 11.6 gm/dl (10.1-14.3); Lymphocytes # (Auto) 2.5 K/mm3 (1.2-5.4); Lymphocytes % (Auto) 52.1 % (13.4-35.0); Mean Corpuscular HGB Conc 33 % (30-34); Mean Corpuscular Volume 89 fl (79-97); Monocytes # (Auto) 0.5 K/mm3 (0.0-0.8); Monocytes % (Auto) 10.5 % (0.0-7.3); Platelet Count 307 K/mm3 (140-440); Red Blood Count 3.99 M/mm3 (3.65-5.03); Red Cell Distribution Width 14.7 % (13.2-15.2)
[2020-06-17 09:23] LABS: Alanine Aminotransferase 21 units/L (7-56); Albumin 3.9 g/dL (3.9-5); BUN/Creatinine Ratio 16; Blood Urea Nitrogen 16 mg/dL (7-17); Calcium 8.9 mg/dL (8.4-10.2); Hemolysis Index 3
[2020-06-17 09:29] LABS: Bilirubin,Direct < 0.2 mg/dL (0-0.2)
--- NOTE | 2020-06-17 10:11 | Cat Scan Report ---
CT abdomen pelvis w con INDICATION: abdominal pain. COMPARISON: None TECHNIQUE: Abdominal and pelvic CT exam performed. All CT scans at this location are performed using CT dose reduction for ALARA by means of automated exposure control. FINDINGS: CT ABDOMEN and PELVIS: Lung Bases: No significant abnormality. Liver: No significant abnormality. Biliary: Gallbladder is surgically absent. Mild extra and intrahepatic biliary ductal dilation which is likely chronic and is commonly seen in the setting of cholecystectomy Spleen: No significant abnormality. Pancreas: No significant abnormality. Adrenals: No significant abnormality. Kidneys: No significant abnormality. Lymphatics: No lymphadenopathy. Vasculature: No significant abnormality. Bowel: No significant abnormality. Normal appendix. Pelvis: No significant abnormality. Osseous Structures: No aggressive osseous lesion. Additional Findings: None IMPRESSION: 1. No acute abnormality of the abdomen or pelvis. 2. Mild biliary ductal dilation which is commonly seen in the setting of cholecystectomy and likely c hronic. Can correlate for cholestatic labs. Signer Name: Blake Mullins MD Signed: 06/17/2020 10:06 AM Workstation Name: [id number]
[2020-06-17 10:49] VITALS: BP 131/90
== END 2020-06-17 10:50 | disposition home or self-care (01) ==
LOC: ED 21:34
DX: G40.909 Epilepsy, unspecified, not intractable, without status epilepticus (principal); R10.9 Unspecified abdominal pain; F31.9 Bipolar disorder, unspecified; F41.9 Anxiety disorder, unspecified; G43.909 Migraine, unspecified, not intractable, without status migrainosus; F17.200 Nicotine dependence, unspecified, uncomplicated; Z90.49 Acquired absence of other specified parts of digestive tract; Z98.890 Other specified postprocedural states; Z98.51 Tubal ligation status; Z88.8 Allergy status to other drugs, medicaments and biological substances; Z79.899 Other long term (current) drug therapy; Z91.14 Patient's other noncompliance with medication regimen
CPT/HCPCS: 36415; 74177; 80048; 80076; 80185; 83690; 84702; 85025; 96361; 96374; 96375; 99284; J1165; J2405; J7030; Q9967

== ENCOUNTER 2020-06-22 00:36 | Emergency (ER) | payer SELFPAY ==
[2020-06-22 01:54] LABS: Amphetamine Screen,Urine PRESUMPTIVE NEGATIVE; Benzodiazepines Screen,Urine PRESUMPTIVE NEGATIVE; Bilirubin,Urine NEG (Negative); Blood,Urine NEG (Negative); Cannabinoid Screen,Urine PRESUMPTIVE NEGATIVE; Cocaine Screen,Urine PRESUMPTIVE POSITIVE; Color,Urine Yellow (Yellow); Methadone Screen,Urine PRESUMPTIVE NEGATIVE; Opiate Screen,Urine PRESUMPTIVE POSITIVE; Protein,Urine <15 mg/dL mg/dL (Negative); Urobilinogen,Urine < 2.0 mg/dL (<2.0)
[2020-06-22 02:08] LABS: Basophils % (Auto) 0.4 % (0.0-1.8); Eosinophils # (Auto) 0.1 K/mm3 (0.0-0.4); Eosinophils % (Auto) 0.8 % (0.0-4.3); Hematocrit 37.4 % (30.3-42.9); Hemoglobin 12.6 gm/dl (10.1-14.3); Lymphocytes # (Auto) 2.9 K/mm3 (1.2-5.4); Lymphocytes % (Auto) 43.6 % (13.4-35.0); Mean Corpuscular HGB Conc 34 % (30-34); Mean Corpuscular Volume 90 fl (79-97); Monocytes # (Auto) 0.5 K/mm3 (0.0-0.8); Monocytes % (Auto) 7.4 % (0.0-7.3); Platelet Count 314 K/mm3 (140-440); Red Blood Count 4.16 M/mm3 (3.65-5.03); Red Cell Distribution Width 14.7 % (13.2-15.2)
[2020-06-22 02:26] LABS: BUN/Creatinine Ratio 17; Blood Urea Nitrogen 17 mg/dL (7-17); Calcium 9.6 mg/dL (8.4-10.2); Hemolysis Index 27
--- NOTE | 2020-06-22 02:34 | Event Note ---
ED Screening Note Date of service: 06/22/20 ED Screening Note: Patient is a 39-year-old -Mal[place] female with a history of anxiety and depression, PTSD and schizophrenia who presents to the ED with complaint of worsening anxiety, shaking spells and tremors, persistent hallucinations and delusional thoughts and suicidal ideation with no tangible plan, stating that she has been feeling jittery and scared that someone is about to harm her. Patient states that the only medication she is taking currently is Vistaril 50 mg daily which she states that she has been taking faithfully every morning. Patient denies chest pain, shortness of breath, dizziness, syncope, change in vision, homicidal ideation, cough, fever, chills, abdominal pain, nausea and vomiting or diarrhea. This initial assessment/diagnostic orders/clinical plan/treatment(s) is/are subject to change based on patients health status, clinical progression and re- assessment by fellow clinical providers in the ED. Further treatment and workup at subsequent clinical providers discretion. Patient/guardian urged not to elope from the ED as their condition may be serious if not clinically assessed and managed. Initial orders include: CBC, CMP, TSH, UA , acetaminophen level, salicylate level, urine drug screen
[2020-06-22 03:18] LABS: Alanine Aminotransferase 33 units/L (7-56); Albumin 3.9 g/dL (3.9-5)
[2020-06-22 03:22] LABS: Bilirubin,Direct < 0.2 mg/dL (0-0.2)
[2020-06-22] MEDS ORDERED: ONDANSETRON 4 MG ODT TAB PO PRN (03:48)
[2020-06-22] MEDS ORDERED: ACETAMINOPHEN 325 MG TAB PO PRN (03:49)
[2020-06-22] MEDS ORDERED: ALPRAZolam 0.5 MG TAB PO PRN (03:50)
--- NOTE | 2020-06-22 03:54 | Emergency Department Report ---
ED General Adult HPI - General Chief complaint: Psych Stated complaint: ANXIETY, MH PUI?: No Time Seen by Provider: 06/22/20 03:24 Source: patient, RN notes reviewed, old records reviewed Mode of arrival: Ambulatory Limitations: No Limitations - History of Present Illness Initial comments: The patient was evaluated in the emergency department for symptoms described in the history of present illness. He/she was evaluated in the context of the global COVID-19 pandemic, which necessitated consideration that the patient might be at risk for infection with the virus that causes COVID-19. Institutional protocols and algorithms that pertain to the evaluation of patients at risk for COVID-19 are in a state of rapid change based on information released by regulatory bodies including the CDC and federal and state organizations. These policies and algorithms were followed during the patient's care in the emergency department. Please note that these policies, procedures and recommendations changed on a rapid basis. This is a pleasant 39-year-old female. She states that she is not , and has not delivered or given in the past 6 weeks. She presents to the ER today with a complaint of painless anxiety. She also reports nonspecific hallucinations. She denies physical pain and urinary symptoms. She denies cough, loss of taste and loss of smell. Today, she has not tried to overdose. She reports having attempted overdose in the past. She does not want to harm other people. She is evasive about whether or not she wants to harm herself. She states that she feels very anxious, and she would like to speak to a psychiatrist. -: Gradual Severity scale (0 -10): 0 Consistency: constant Improves with: none Worsens with: none Associated Symptoms: denies other symptoms - Related Data Previous Rx's Medication Instructions Recorded Last Taken Type Acetaminophen/Codeine [Tylenol 1 tab PO Q6H PRN #12 tab 06/01/20 Unknown Rx /Codeine # 3 tab] Baclofen 5 mg PO TID PRN #15 tablet 06/01/20 Unknown Rx Hydroxyzine HCl [hydrOXYzine] 50 mg PO DAILY PRN #30 tablet 06/07/20 Unknown Rx Sulfamethoxazole/Trimethoprim 1 each PO BID 10 Days #20 tablet 06/07/20 Unknown Rx [Bactrim DS TAB] risperiDONE [RisperDAL] 0.5 mg PO BID #60 tablet 01/16/21 Unknown Rx traZODone [Desyrel] 50 mg PO QHS #30 tab 06/07/20 Unknown Rx Ondansetron [Zofran Odt] 4 mg PO Q8HR PRN #20 tab.rapdis 06/16/20 Unknown Rx Phenytoin [Dilantin] 100 mg PO BID #30 capsule 06/16/20 Unknown Rx Allergies Allergy/AdvReac Type Severity Reaction Status Date / Time metoclopramide [From Reglan] Allergy Unknown Verified 06/16/20 01:13 ED Review of Systems ROS: Stated complaint: ANXIETY, MH Other details as noted in HPI Comment: All other systems reviewed and negative Psychiatric: as per HPI, anxiety. denies: homicidal thoughts ED Past Medical Hx - Past Medical History Previous Medical History?: Yes Hx Headaches / Migraines: Yes Hx Seizures: Yes Hx Psychiatric Treatment: Yes (Bipolar, Anxiety,) - Surgical History Past Surgical History?: Yes Hx Cholecystectomy: Yes Additional Surgical History: Hernia. Tubal ligation. - Social History Smoking Status: Current Every Day Smoker Substance Use Type: None - Medications Home Medications: Home Medications Medication Instructions Recorded Confirmed Last Taken Type Acetaminophen/Codeine [Tylenol 1 tab PO Q6H PRN #12 tab 06/01/20 Unknown Rx /Codeine # 3 tab] Baclofen 5 mg PO TID PRN #15 tablet 06/01/20 Unknown Rx Hydroxyzine HCl [hydrOXYzine] 50 mg PO DAILY PRN #30 tablet 06/07/20 Unknown Rx Sulfamethoxazole/Trimethoprim 1 each PO BID 10 Days #20 tablet 06/07/20 Unknown Rx [Bactrim DS TAB] risperiDONE [RisperDAL] 0.5 mg PO BID #60 tablet 06/07/20 Unknown Rx traZODone [Desyrel] 50 mg PO QHS #30 tab 06/07/20 Unknown Rx Ondansetron [Zofran Odt] 4 mg PO Q8HR PRN #20 tab.rapdis 06/16/20 Unknown Rx Phenytoin [Dilantin] 100 mg PO BID #30 capsule 06/16/20 Unknown Rx ED Physical Exam - General Limitations: No Limitations General appearance: alert, in no apparent distress - Head Head exam: Present: atraumatic, normocephalic - Eye Eye exam: Present: normal appearance, EOMI. Absent: nystagmus - ENT ENT exam: Present: normal exam, normal orophraynx, mucous membranes moist, normal external ear exam - Neck Neck exam: Present: normal inspection, full ROM. Absent: tenderness, meningismus - Respiratory Respiratory exam: Present: normal lung sounds bilaterally. Absent: respiratory distress, wheezes, rales, rhonchi, stridor, decreased breath sounds - Cardiovascular Cardiovascular Exam: Present: regular rate, normal rhythm, normal heart sounds. Absent: bradycardia, tachycardia, irregular rhythm, systolic murmur, diastolic murmur, rubs, gallop - GI/Abdominal GI/Abdominal exam: Present: soft, normal bowel sounds. Absent: distended, tenderness, guarding, rebound, rigid, pulsatile mass - Extremities Exam Extremities exam: Present: normal inspection, full ROM, other (2+ pulses noted in the bilateral upper and lower extremities. There is no palpable cord. negative Homans sign. Muscular compartments are soft. The pelvis is stable.). Absent: calf tenderness - Back Exam Back exam: Present: normal inspection, full ROM. Absent: tenderness, CVA tenderness (R), CVA tenderness (L), paraspinal tenderness, vertebral tenderness - Neurological Exam Neurological exam: Present: alert, oriented X3, normal gait, other (No facial droop. Tongue midline. Extraocular movements intact bilaterally. Facial sensation intact to light touch in V1, V2, V3 distribution bilaterally. 5 and a 5 strength in 4 extremities. Sensation intact to light touch in 4 extremities.). Absent: motor sensory deficit - Psychiatric Psychiatric exam: Present: normal affect, normal mood - Skin Skin exam: Present: warm, dry, intact, normal color. Absent: rash ED Course Vital Signs 06/22/20 01:23 Temperature 99.4 F Pulse Rate 106 H Respiratory 18 Rate Blood Pressure 156/96 [Left] O2 Sat by Pulse 100 Oximetry - Reevaluation(s) Reevaluation #1: 06/22/20 04:51 Remainder of laboratory studies unremarkable. Patient in no acute distress at this time. At this point time, patient does not appear to have an immediate medical contraindication to psychiatric admission, evaluation, consultation and placement. However, if the psychiatry team recommends discharge with outpatient follow-up from a psychiatric perspective, I think this plan of care would be reasonable as well ED Medical Decision Making - Lab Data Result diagrams: 06/22/20 01:39 06/22/20 01:39 Vital Signs 06/22/20 01:23 Temperature 99.4 F Pulse Rate 106 H Respiratory 18 Rate Blood Pressure 156/96 [Left] O2 Sat by Pulse 100 Oximetry Lab Results 06/22/20 06/22/20 06/22/20 Range/Units 01:28 01:28 01:39 WBC (4.5-11.0) K/mm3 RBC (3.65-5.03) M/mm3 Hgb (10.1-14.3) gm/dl Hct (30.3-42.9) % MCV (79-97) fl MCH (28-32) pg MCHC (30-34) % RDW (13.2-15.2) % Plt Count (140-440) K/mm3 Lymph % (Auto) (13.4-35.0) % [place] % (Auto) (0.0-7.3) % Eos % (Auto) (0.0-4.3) % Baso % (Auto) (0.0-1.8) % Lymph # (Auto) (1.2-5.4) K/mm3 [place] # (Auto) (0.0-0.8) K/mm3 Eos # (Auto) (0.0-0.4) K/mm3 Baso # (Auto) (0.0-0.1) K/mm3 Seg Neutrophils % (40.0-70.0) % Seg Neutrophils # (1.8-7.7) K/mm3 Sodium (137-145) mmol/L Potassium (3.6-5.0) mmol/L Chloride (98-107) mmol/L Carbon Dioxide (22-30) mmol/L Anion Gap mmol/L BUN (7-17) mg/dL Creatinine (0.6-1.2) mg/dL Estimated GFR ml/min BUN/Creatinine Ratio % Glucose (65-100) mg/dL Calcium (8.4-10.2) mg/dL Total Bilirubin (0.1-1.2) mg/dL Direct Bilirubin (0-0.2) mg/dL Indirect Bilirubin mg/dL AST (5-40) units/L ALT (7-56) units/L Alkaline Phosphatase (35-129) units/L Total Protein (6.3-8.2) g/dL Albumin (3.9-5) g/dL Albumin/Globulin Ratio % TSH (0.270-4.200) mlU/mL HCG, Qual (Negative) Urine Color Yellow (Yellow) Urine Turbidity Slightly-cloudy (Clear) Urine pH 5.0 (5.0-7.0) Ur Specific [place] 1.014 (1.003-1.030) Urine Protein <15 mg/dl (Negative) mg/dL Urine Glucose (UA) Neg (Negative) mg/dL Urine Ketones Neg (Negative) mg/dL Urine Blood Neg (Negative) Urine Nitrite Neg (Negative) Urine Bilirubin Neg (Negative) Urine Urobilinogen < 2.0 (<2.0) mg/dL Ur Leukocyte Esterase Neg (Negative) Urine WBC (Auto) 7.0 H (0.0-6.0) /HPF Urine RBC (Auto) 2.0 (0.0-6.0) /HPF U Epithel Cells (Auto) 4.0 (0-13.0) /HPF Salicylates < 0.3 L (2.8-20.0) mg/dL Urine Opiates Screen Presumptive positive Urine Methadone Screen Presumptive negative Acetaminophen (10.0-30.0) ug/mL Ur Barbiturates Screen Presumptive negative Ur Phencyclidine Scrn Presumptive negative Ur Amphetamines Screen Presumptive negative U Benzodiazepines Scrn Presumptive negative Urine Cocaine Screen Presumptive positive U Marijuana (THC) Screen Presumptive negative Drugs of Abuse Note Disclamer Plasma/Serum Alcohol (0-0.07) % 06/22/20 06/22/20 06/22/20 Range/Units 01:39 01:39 01:39 WBC (4.5-11.0) K/mm3 RBC (3.65-5.03) M/mm3 Hgb (10.1-14.3) gm/dl Hct (30.3-42.9) % MCV (79-97) fl MCH (28-32) pg MCHC (30-34) % RDW (13.2-15.2) % Plt Count (140-440) K/mm3 Lymph % (Auto) (13.4-35.0) % [place] % (Auto) (0.0-7.3) % Eos % (Auto) (0.0-4.3) % Baso % (Auto) (0.0-1.8) % Lymph # (Auto) (1.2-5.4) K/mm3 [place] # (Auto) (0.0-0.8) K/mm3 Eos # (Auto) (0.0-0.4) K/mm3 Baso # (Auto) (0.0-0.1) K/mm3 Seg Neutrophils % (40.0-70.0) % Seg Neutrophils # (1.8-7.7) K/mm3 Sodium 136 L (137-145) mmol/L Potassium 3.8 (3.6-5.0) mmol/L Chloride 101.5 (98-107) mmol/L Carbon Dioxide 25 (22-30) mmol/L Anion Gap 13 mmol/L BUN 17 (7-17) mg/dL Creatinine 1.0 (0.6-1.2) mg/dL Estimated GFR > 60 ml/min BUN/Creatinine Ratio 17 % Glucose 101 H (65-100) mg/dL Calcium 9.6 (8.4-10.2) mg/dL Total Bilirubin (0.1-1.2) mg/dL Direct Bilirubin (0-0.2) mg/dL Indirect Bilirubin mg/dL AST (5-40) units/L ALT (7-56) units/L Alkaline Phosphatase (35-129) units/L Total Protein (6.3-8.2) g/dL Albumin (3.9-5) g/dL Albumin/Globulin Ratio % TSH (0.270-4.200) mlU/mL HCG, Qual (Negative) Urine Color (Yellow) Urine Turbidity (Clear) Urine pH (5.0-7.0) Ur Specific [place] (1.003-1.030) Urine Protein (Negative) mg/dL Urine Glucose (UA) (Negative) mg/dL Urine Ketones (Negative) mg/dL Urine Blood (Negative) Urine Nitrite (Negative) Urine Bilirubin (Negative) Urine Urobilinogen (<2.0) mg/dL Ur Leukocyte Esterase (Negative) Urine WBC (Auto) (0.0-6.0) /HPF Urine RBC (Auto) (0.0-6.0) /HPF U Epithel Cells (Auto) (0-13.0) /HPF Salicylates (2.8-20.0) mg/dL Urine Opiates Screen Urine Methadone Screen Acetaminophen 5.0 L (10.0-30.0) ug/mL Ur Barbiturates Screen Ur Phencyclidine Scrn Ur Amphetamines Screen U Benzodiazepines Scrn Urine Cocaine Screen U Marijuana (THC) Screen Drugs of Abuse Note Plasma/Serum Alcohol < 0.01 (0-0.07) % 06/22/20 06/22/20 06/22/20 Range/Units 01:39 01:39 02:42 WBC 6.7 (4.5-11.0) K/mm3 RBC 4.16 (3.65-5.03) M/mm3 Hgb 12.6 (10.1-14.3) gm/dl Hct 37.4 (30.3-42.9) % MCV 90 (79-97) fl MCH 30 (28-32) pg MCHC 34 (30-34) % RDW 14.7 (13.2-15.2) % Plt Count 314 (140-440) K/mm3 Lymph % (Auto) 43.6 H (13.4-35.0) % [place] % (Auto) 7.4 H (0.0-7.3) % Eos % (Auto) 0.8 (0.0-4.3) % Baso % (Auto) 0.4 (0.0-1.8) % Lymph # (Auto) 2.9 (1.2-5.4) K/mm3 [place] # (Auto) 0.5 (0.0-0.8) K/mm3 Eos # (Auto) 0.1 (0.0-0.4) K/mm3 Baso # (Auto) 0.0 (0.0-0.1) K/mm3 Seg Neutrophils % 47.8 (40.0-70.0) % Seg Neutrophils # 3.2 (1.8-7.7) K/mm3 Sodium (137-145) mmol/L Potassium (3.6-5.0) mmol/L Chloride (98-107) mmol/L Carbon Dioxide (22-30) mmol/L Anion Gap mmol/L BUN (7-17) mg/dL Creatinine (0.6-1.2) mg/dL Estimated GFR ml/min BUN/Creatinine Ratio % Glucose (65-100) mg/dL Calcium (8.4-10.2) mg/dL Total Bilirubin (0.1-1.2) mg/dL Direct Bilirubin (0-0.2) mg/dL Indirect Bilirubin mg/dL AST (5-40) units/L ALT (7-56) units/L Alkaline Phosphatase (35-129) units/L Total Protein (6.3-8.2) g/dL Albumin (3.9-5) g/dL Albumin/Globulin Ratio % TSH 2.690 (0.270-4.200) mlU/mL HCG, Qual Negative (Negative) Urine Color (Yellow) Urine Turbidity (Clear) Urine pH (5.0-7.0) Ur Specific [place] (1.003-1.030) Urine Protein (Negative) mg/dL Urine Glucose (UA) (Negative) mg/dL Urine Ketones (Negative) mg/dL Urine Blood (Negative) Urine Nitrite (Negative) Urine Bilirubin (Negative) Urine Urobilinogen (<2.0) mg/dL Ur Leukocyte Esterase (Negative) Urine WBC (Auto) (0.0-6.0) /HPF Urine RBC (Auto) (0.0-6.0) /HPF U Epithel Cells (Auto) (0-13.0) /HPF Salicylates (2.8-20.0) mg/dL Urine Opiates Screen Urine Methadone Screen Acetaminophen (10.0-30.0) ug/mL Ur Barbiturates Screen Ur Phencyclidine Scrn Ur Amphetamines Screen U Benzodiazepines Scrn Urine Cocaine Screen U Marijuana (THC) Screen Drugs of Abuse Note Plasma/Serum Alcohol (0-0.07) % 06/22/20 Range/Units 02:42 WBC (4.5-11.0) K/mm3 RBC (3.65-5.03) M/mm3 Hgb (10.1-14.3) gm/dl Hct (30.3-42.9) % MCV (79-97) fl MCH (28-32) pg MCHC (30-34) % RDW (13.2-15.2) % Plt Count (140-440) K/mm3 Lymph % (Auto) (13.4-35.0) % [place] % (Auto) (0.0-7.3) % Eos % (Auto) (0.0-4.3) % Baso % (Auto) (0.0-1.8) % Lymph # (Auto) (1.2-5.4) K/mm3 [place] # (Auto) (0.0-0.8) K/mm3 Eos # (Auto) (0.0-0.4) K/mm3 Baso # (Auto) (0.0-0.1) K/mm3 Seg Neutrophils % (40.0-70.0) % Seg Neutrophils # (1.8-7.7) K/mm3 Sodium (137-145) mmol/L Potassium (3.6-5.0) mmol/L Chloride (98-107) mmol/L Carbon Dioxide (22-30) mmol/L Anion Gap mmol/L BUN (7-17) mg/dL Creatinine (0.6-1.2) mg/dL Estimated GFR ml/min BUN/Creatinine Ratio % Glucose (65-100) mg/dL Calcium (8.4-10.2) mg/dL Total Bilirubin < 0.20 (0.1-1.2) mg/dL Direct Bilirubin < 0.2 (0-0.2) mg/dL Indirect Bilirubin 0.0 mg/dL AST 28 (5-40) units/L ALT 33 (7-56) units/L Alkaline Phosphatase 65 (35-129) units/L Total Protein 7.2 (6.3-8.2) g/dL Albumin 3.9 (3.9-5) g/dL Albumin/Globulin Ratio 1.2 % TSH (0.270-4.200) mlU/mL HCG, Qual (Negative) Urine Color (Yellow) Urine Turbidity (Clear) Urine pH (5.0-7.0) Ur Specific [place] (1.003-1.030) Urine Protein (Negative) mg/dL Urine Glucose (UA) (Negative) mg/dL Urine Ketones (Negative) mg/dL Urine Blood (Negative) Urine Nitrite (Negative) Urine Bilirubin (Negative) Urine Urobilinogen (<2.0) mg/dL Ur Leukocyte Esterase (Negative) Urine WBC (Auto) (0.0-6.0) /HPF Urine RBC (Auto) (0.0-6.0) /HPF U Epithel Cells (Auto) (0-13.0) /HPF Salicylates (2.8-20.0) mg/dL Urine Opiates Screen Urine Methadone Screen Acetaminophen (10.0-30.0) ug/mL Ur Barbiturates Screen Ur Phencyclidine Scrn Ur Amphetamines Screen U Benzodiazepines Scrn Urine Cocaine Screen U Marijuana (THC) Screen Drugs of Abuse Note Plasma/Serum Alcohol (0-0.07) % - Medical Decision Making Differential diagnosis, including but not limited to: Anxiety, secondary gain, medical clearance for psychiatric consultation Assessment and plan: 39-year-old female, with resolved tachycardia on my examination, presenting today with a painless complaints of hallucinations, triage nurse documents that patient has had thoughts of hurting herself. Patient is evasive to me. She is placed on hold status. Laboratory studies ordered. So far they are unremarkable. Pyuria reviewed and appreciated. It is asymptomatic, and she has had recent negative cultures. Do not see indication to initiate antibiotic therapy. Patient recently started on phenytoin. We will check a phenytoin level. Assuming not significantly abnormal, we will consider the patient medically suitable for psychiatric consultation, evaluation and placement. Critical care attestation.: If time is entered above; I have spent that time in minutes in the direct care of this critically ill patient, excluding procedure time. ED Disposition Clinical Impression: Medical clearance for psychiatric admission Disposition: [id number]/[id number] PSY HOSP/PSY UNIT Is pt being admited?: No Does the pt Need Aspirin: No Condition: Good Referrals: PRIMARY CARE, [Primary Care Provider] - 3-5 Days
--- NOTE | 2020-06-22 08:43 | Consultation ---
History of Present Illness - Reason for Consult Consult date: 06/22/20 Reason for consult: hallucinations, anxiety - History of Present Psychiatric Illness Per ED note: "Patient is a 39-year-old -[place] female with a history of anxiety and depression, PTSD and schizophrenia who presents to the ED with complaint of worsening anxiety, shaking spells and tremors, persistent hallucinations and delusional thoughts and suicidal ideation with no tangible plan, stating that she has been feeling jittery and scared that someone is about to harm her. Patient states that the only medication she is taking currently is Vistaril 50 mg daily which she states that she has been taking faithfully every morning. Patient denies chest pain, shortness of breath, dizziness, syncope, change in vision, homicidal ideation, cough, fever, chills, abdominal pain, nausea and vomiting or diarrhea." During my interview with 39y/o Karina Fu, she is laying on the bed eating. She is known to me from a previous visit. She has a history of "bipolar, PTSD, anxiety and schizophrenia." The patient says she is "hearing voices that are battling with each other about what they want to do to me." She says "they don't tell me to do anything but they keep going on about wanting to harm me." She says "I feel nervous and scared." The patient does verbalize suicidal thoughts, but denies a plan to do so. When asked had she been on her medications, she said "I could not afford the medication." The patient admits to using "heroin." Discussed with the patient her need for illicit drug cessation and drug rehabilitation. The patient replies, "I really need someone to help me. I'm not from here and if I don't do the drugs I can't take the withdrawals without help." The patient states "I got medicaid but no one will help me. I just wish I could get back home." PAST PSYCHIATRIC HISTORY Diagnoses: PTSD, Anxiety, bipolar, schizophrenia Suicide attempts or Self-harm behavior: yes Prior psychiatric hospitalizations: Yes Substance Abuse history: Heroin Previous psychiatric medications tried: Trazodone, hydroxizine Outpatient treatment: No PAST MEDICAL HISTORY: None reported Family Psychiatric History: None reported or documented SOCIAL HISTORY Marital Status: Single Living Arrangements: with friends Employment Status: unemployed Access to guns/weapons: Denies Education: 11th History of Abuse: Denies Legal History: Denies EVIEW OF SYSTEMS Constitutional: Negative for weight loss ENT: Negative for stridor Respiratory: Negative for cough or hemoptysis All other systems reviewed and are negative MENTAL STATUS EXAMINATION General Appearance and Behavior: Age appropriate, wearing appropriate clothes, calm and cooperative, polite Mood: "okay" Affect and affective range: congruent with mood Thought Process: illogical Thought Content: auditory hallucinations Speech: Normal volume, Regular rate and rhythm Suicidal Ideation: Yes Homicidal Ideation: Denies Hallucinations: Auditory Delusions: None elicited Impulse Control: Normal Insight and Judgment: Limited Memory/Cognition: Normal Attention: Normal Orientation: Alert, oriented Assessment (1) Bipolar Disorder (F31.4) (2) Opioid Dependence (F11.20) (3) Noncompliance with other medical treatments and regimen (Z91.10) Plan 1013 Hydroxizine 50mg po daily prn anxiety Risperidone 0.5mg po BID Trazodone 50mg po qhs Depakote DR 125mg po BID Sitter: Defer to primary Medical: Per primary Disposition: recommend acute inpatient treatment. Will follow. Thank you for this consult. Case staffed with Dr. Luz Medications and Allergies Allergies Allergy/AdvReac Type Severity Reaction Status Date / Time metoclopramide [From Reglan] Allergy Unknown Verified 06/16/20 01:13 Home Medications Medication Instructions Recorded Confirmed Last Taken Type Acetaminophen/Codeine [Tylenol 1 tab PO Q6H PRN #12 tab 06/01/20 Unknown Rx /Codeine # 3 tab] Baclofen 5 mg PO TID PRN #15 tablet 06/01/20 Unknown Rx risperiDONE [RisperDAL] 0.5 mg PO BID #60 tablet 06/07/20 Unknown Rx traZODone [Desyrel] 50 mg PO QHS #30 tab 06/07/20 Unknown Rx Ondansetron [Zofran Odt] 4 mg PO Q8HR PRN #20 tab.rapdis 06/16/20 Unknown Rx Phenytoin [Dilantin] 100 mg PO BID #30 capsule 06/16/20 Unknown Rx hydrOXYzine PAMOATE [Vistaril] 50 mg PO BID PRN 06/22/20 06/22/20 Unknown History Active Meds: Active Medications Acetaminophen (Acetaminophen 325 Mg Tab) 650 mg PO Q4HR PRN PRN Reason: Pain MILD(1-3)/Fever >100.5/RANGEL Last Admin: 06/22/20 04:45 Dose: 650 mg Documented by: Alprazolam (Alprazolam 0.5 Mg Tab) 0.5 mg PO Q6HR PRN PRN Reason: Anxiety Ondansetron HCl (Ondansetron 4 Mg Odt Tab) 4 mg PO Q8HR PRN PRN Reason: Vomiting Last Admin: 06/22/20 04:46 Dose: 4 mg Documented by: Phenytoin (Phenytoin 100 Mg Capsule.Er) 100 mg PO BID RENEE Mental Status Exam - Vital signs Last Vital Signs Temp 97.4 F L 06/22/20 08:41 Pulse 77 06/22/20 08:41 Resp 18 06/22/20 08:41 BP 122/77 06/22/20 08:41 Pulse Ox 97 06/22/20 08:41 Results Result Diagrams: 06/22/20 01:39 06/22/20 01:39 Abnormal lab results 06/22/20 06/22/20 06/22/20 Range/Units 01:28 01:39 01:39 Lymph % (Auto) (13.4-35.0) % [place] % (Auto) (0.0-7.3) % Sodium (137-145) mmol/L Glucose (65-100) mg/dL Urine WBC (Auto) 7.0 H (0.0-6.0) /HPF Salicylates < 0.3 L (2.8-20.0) mg/dL Acetaminophen 5.0 L (10.0-30.0) ug/mL Phenytoin (10.0-20.0) ug/mL 06/22/20 06/22/20 06/22/20 Range/Units 01:39 01:39 02:42 Lymph % (Auto) 43.6 H (13.4-35.0) % [place] % (Auto) 7.4 H (0.0-7.3) % Sodium 136 L (137-145) mmol/L Glucose 101 H (65-100) mg/dL Urine WBC (Auto) (0.0-6.0) /HPF Salicylates (2.8-20.0) mg/dL Acetaminophen (10.0-30.0) ug/mL Phenytoin 0.8 L (10.0-20.0) ug/mL All other labs normal.
[2020-06-22] MEDS: ALPRAZolam 0.5 MG TAB PO PRN (08:56)
[2020-06-22] MEDS: risperiDONE 0.25 MG TAB PO SCH ×2 (10:15→22:07)
[2020-06-22] MEDS: DIVALPROEX DR 125 MG TAB PO SCH ×2 (10:15→22:05)
[2020-06-22] MEDS: PHENYTOIN 100 MG CAPSULE.ER PO SCH ×2 (10:35→22:27)
[2020-06-22] MEDS: traZODone 50 MG TAB PO SCH (22:07)
[2020-06-23] MEDS: risperiDONE 0.25 MG TAB PO SCH ×2 (10:33→22:16)
[2020-06-23] MEDS: DIVALPROEX DR 125 MG TAB PO SCH ×2 (10:33→22:17)
[2020-06-23] MEDS: PHENYTOIN 100 MG CAPSULE.ER PO SCH ×2 (10:33→22:18)
[2020-06-23] MEDS: traZODone 50 MG TAB PO SCH (22:16)
[2020-06-23] MEDS ORDERED: LORazepam 1 MG TAB PO PRN (22:41)
[2020-06-23] MEDS ORDERED: DIPHENOXYLATE/ATROPINE TAB PO PRN (23:05)
[2020-06-24] MEDS: ALPRAZolam 0.5 MG TAB PO PRN (05:26)
[2020-06-24 07:44] VITALS: BP 155/89
--- NOTE | 2020-06-24 09:05 | Progress Note ---
Subjective - Reason for Consult Consult date: 06/24/20 Reason for consult: hallucinations, drug abuse, SI - Chief Complaint Chief complaint: During my interview with Karina today, she is awake, calm, cooperative and pleasant. She is smiling. She appears to be in good spirits. The patient says she has been lying in bed thinking about her life. She says "I feel really optimistic about my future." She says her family has purchased her a ticket to go back to [place]. She and I talked about her need of drug cessation and rehab. The patient says "I'm moving forward and not looking back. I just need all the resources you can give me." She denies hallucinations of any kind or SI/HI. She says "not at all." REVIEW OF SYSTEMS Constitutional: Negative for weight loss ENT: Negative for stridor Respiratory: Negative for cough or hemoptysis All other systems reviewed and are negative MENTAL STATUS EXAMINATION General Appearance and Behavior: Age appropriate, wearing appropriate clothes, calm and cooperative, polite Mood: "much better" Affect and affective range: congruent with mood, smiling Thought Process: goal oriented Thought Content: optimism Speech: Normal volume, Regular rate and rhythm Suicidal Ideation: Denies Homicidal Ideation: Denies Hallucinations: Denies Delusions: None elicited Impulse Control: Normal Insight and Judgment: Limited Memory/Cognition: Normal Attention: Normal Orientation: Alert, oriented Assessment (1) Bipolar Disorder (F31.4) (2) Opioid Dependence (F11.20) (3) Noncompliance with other medical treatments and regimen (Z91.10) Plan D/c 1013 Scripts: Hydroxizine 50mg po daily prn anxiety Risperidone 0.5mg po BID Trazodone 50mg po qhs Depakote DR 125mg po BID Sitter: Defer to primary Medical: Per primary Disposition: Do not recommend acute inpatient treatment. The patient understands that if SI/HI or any fear of endangerment are to arise she is to seek immediate assistance including but not limited to 911/ER, crisis hotlinle. She is to abstain from all illicit drug use. The animal therapist is to give the patient safety plan, outpatient resources for psychiatric services including CBT, med assistance programs, and drug rehab The patient is to follow up with outpatient psych in 7 to 14 days upon discharge Will sign off. Thank you for this consult. Case staffed with Dr. Luz Mental Status Exam - Vital signs Last Vital Signs Temp 98.6 F 06/24/20 07:43 Pulse 66 06/24/20 07:43 Resp 18 06/24/20 07:45 BP 155/89 06/24/20 07:43 Pulse Ox 97 06/24/20 07:43
[2020-06-24] MEDS: risperiDONE 0.25 MG TAB PO SCH (09:44)
[2020-06-24] MEDS: DIVALPROEX DR 125 MG TAB PO SCH (09:44)
[2020-06-24] MEDS: PHENYTOIN 100 MG CAPSULE.ER PO SCH (10:16)
== END 2020-06-24 10:26 ==
LOC: ED 00:36
DX: Z00.8 Encounter for other general examination (principal); F31.9 Bipolar disorder, unspecified; G43.909 Migraine, unspecified, not intractable, without status migrainosus; F17.200 Nicotine dependence, unspecified, uncomplicated; Z88.8 Allergy status to other drugs, medicaments and biological substances; Z79.899 Other long term (current) drug therapy; Z90.49 Acquired absence of other specified parts of digestive tract; Z98.51 Tubal ligation status; Z98.890 Other specified postprocedural states; Z86.69 Personal history of other diseases of the nervous system and sense organs; Z20.828 Contact with and (suspected) exposure to other viral communicable diseases
CPT/HCPCS: 36415; 80048; 80076; 80185; 80307; 81001; 82550; 84443; 84703; 85025; 99284; Q0177; U0003; 80320; G0480; Q0162

== ENCOUNTER 2020-06-25 22:20 | Emergency (ER) | payer SELFPAY ==
[2020-06-25 22:44] VITALS: BP 122/87
--- NOTE | 2020-06-25 23:34 | Emergency Department Report ---
ED Female HPI - General Chief complaint: Urogenital-Female Stated complaint: FREQUENT URINATION/ANXIETY Time Seen by Provider: 06/25/20 22:43 Source: patient Mode of arrival: Ambulatory Limitations: No Limitations - History of Present Illness MD Complaint: dysuria -: Gradual Location: suprapubic Radiation: suprapubic Severity: mild Quality: burning Consistency: constant Improves with: none Worsens with: none Are you Now?: No - Related Data Sexually active: No Home Medications Medication Instructions Recorded Confirmed Last Taken hydrOXYzine PAMOATE [Vistaril] 50 mg PO BID PRN 06/22/20 06/22/20 Unknown Previous Rx's Medication Instructions Recorded Last Taken Type Acetaminophen/Codeine [Tylenol 1 tab PO Q6H PRN #12 tab 06/01/20 Unknown Rx /Codeine # 3 tab] Baclofen 5 mg PO TID PRN #15 tablet 06/01/20 Unknown Rx risperiDONE [RisperDAL] 0.5 mg PO BID #60 tablet 06/07/20 Unknown Rx traZODone [Desyrel] 50 mg PO QHS #30 tab 06/07/20 Unknown Rx Ondansetron [Zofran Odt] 4 mg PO Q8HR PRN #20 tab.rapdis 06/16/20 Unknown Rx Phenytoin [Dilantin] 100 mg PO BID #30 capsule 06/16/[address] [DepaKOTE DR] 125 mg PO BID #60 tablet 06/24/20 Unknown Rx Hydroxyzine HCl [hydrOXYzine] 50 mg PO BID PRN #60 tablet 06/24/20 Unknown Rx risperiDONE [RisperDAL] 0.5 mg PO BID #60 tablet 06/24/20 Unknown Rx traZODone [Desyrel] 50 mg PO QHS #30 tab 06/24/20 Unknown Rx Sulfamethoxazole/Trimethoprim 1 each PO BID #14 tablet 06/26/20 Unknown Rx [Bactrim DS TAB] Allergies Allergy/AdvReac Type Severity Reaction Status Date / Time metoclopramide [From Reglan] Allergy Unknown Verified 06/16/20 01:13 ED Review of Systems ROS: Stated complaint: FREQUENT URINATION/ANXIETY Other details as noted in HPI ED Past Medical Hx - Past Medical History Previous Medical History?: Yes Hx Headaches / Migraines: Yes Hx Seizures: Yes Hx Psychiatric Treatment: Yes (Bipolar, Anxiety,) - Surgical History Hx Cholecystectomy: Yes Additional Surgical History: Hernia. Tubal ligation. - Social History Smoking Status: Current Every Day Smoker Substance Use Type: None - Medications Home Medications: Home Medications Medication Instructions Recorded Confirmed Last Taken Type Acetaminophen/Codeine [Tylenol 1 tab PO Q6H PRN #12 tab 06/01/20 06/22/20 Unknown Rx /Codeine # 3 tab] Baclofen 5 mg PO TID PRN #15 tablet 06/01/20 06/22/20 Unknown Rx risperiDONE [RisperDAL] 0.5 mg PO BID #60 tablet 06/07/20 06/22/20 Unknown Rx traZODone [Desyrel] 50 mg PO QHS #30 tab 06/07/20 06/22/20 Unknown Rx Ondansetron [Zofran Odt] 4 mg PO Q8HR PRN #20 tab.rapdis 06/16/20 06/22/20 Unknown Rx Phenytoin [Dilantin] 100 mg PO BID #30 capsule 06/16/20 06/22/20 Unknown Rx hydrOXYzine PAMOATE [Vistaril] 50 mg PO BID PRN 06/22/20 06/22/[address] [DepaKOTE DR] 125 mg PO BID #60 tablet 06/24/20 Unknown Rx Hydroxyzine HCl [hydrOXYzine] 50 mg PO BID PRN #60 tablet 06/24/20 Unknown Rx risperiDONE [RisperDAL] 0.5 mg PO BID #60 tablet 06/24/20 Unknown Rx traZODone [Desyrel] 50 mg PO QHS #30 tab 06/24/20 Unknown Rx Sulfamethoxazole/Trimethoprim 1 each PO BID #14 tablet 06/26/20 Unknown Rx [Bactrim DS TAB] ED Physical Exam - General Limitations: No Limitations General appearance: alert, in no apparent distress - Head Head exam: Present: atraumatic, normocephalic - Eye Eye exam: Present: normal appearance, PERRL, EOMI - ENT ENT exam: Present: mucous membranes moist - Neck Neck exam: Present: normal inspection - Respiratory Respiratory exam: Present: normal lung sounds bilaterally. Absent: respiratory distress - Cardiovascular Cardiovascular Exam: Present: regular rate, normal rhythm. Absent: systolic murmur, diastolic murmur, rubs, gallop - GI/Abdominal GI/Abdominal exam: Present: soft, normal bowel sounds - Extremities Exam Extremities exam: Present: normal inspection - Back Exam Back exam: Present: normal inspection - Neurological Exam Neurological exam: Present: alert, oriented X3 - Psychiatric Psychiatric exam: Present: normal affect, normal mood - Skin Skin exam: Present: warm, dry, intact, normal color. Absent: rash ED Course Vital Signs 06/25/20 22:36 Temperature 98.6 F Pulse Rate 88 Respiratory 18 Rate Blood Pressure 122/87 O2 Sat by Pulse 95 Oximetry ED Medical Decision Making - Medical Decision Making This patient presents to the emergency department with symptoms consistent with acute uncomplicated cystitis. No systemic symptoms. Not septic. She is well- appearing. Low suspicion for acute pyelonephritis given the lack of fever, CVA tenderness, or systemic features. Low suspicion for for kidney stone or infected stone. Not in age range for and her history and and presentation are complicated. No no indications for labs or imaging at this time. Critical care attestation.: If time is entered above; I have spent that time in minutes in the direct care of this critically ill patient, excluding procedure time. ED Disposition Clinical Impression: Dysuria Disposition: DC-01 TO HOME OR SELFCARE Is pt being admited?: No Does the pt Need Aspirin: No Condition: Stable Instructions: Dysuria Prescriptions: Sulfamethoxazole/Trimethoprim [Bactrim DS TAB] 1 each PO BID #14 tablet Referrals: [facility] [Provider Group] - 3-5 Days
[2020-06-26 00:36] LABS: Bilirubin,Urine NEG (Negative); Blood,Urine NEG (Negative); Color,Urine Yellow (Yellow); HCG Qualitative,Urine Negative (Negative); Mucus,Urine FEW /HPF; Protein,Urine <15 mg/dL mg/dL (Negative); Urobilinogen,Urine < 2.0 mg/dL (<2.0)
== END 2020-06-26 01:40 | disposition home or self-care (01) ==
LOC: ED 22:20
DX: R30.0 Dysuria (principal); F31.9 Bipolar disorder, unspecified; F41.9 Anxiety disorder, unspecified; G43.909 Migraine, unspecified, not intractable, without status migrainosus; F17.200 Nicotine dependence, unspecified, uncomplicated; Z98.51 Tubal ligation status; Z86.69 Personal history of other diseases of the nervous system and sense organs; Z79.899 Other long term (current) drug therapy; Z88.8 Allergy status to other drugs, medicaments and biological substances; Z90.49 Acquired absence of other specified parts of digestive tract
CPT/HCPCS: 81001; 81025; 82962; 87086